=== PATIENT | male | born 1950 | race African-American/Black ===

== ENCOUNTER 2019-09-03 07:12 | Day surgery (SDC) | payer MEDICARE, MEDICAID ==
[~2019-09-03 07:12] MED LIST: KETOROLAC TROMETHAMINE 0.45% 4 DROP/0.4 ML DROPERETTE OD PRN
[2019-09-03] MEDS ORDERED: EPINEPHRINE INJ/PF 1 MG/1 ML AMPULE ONE (07:17)
[2019-09-03] MEDS ORDERED: LIDOCAINE 1%/PHENYLEPHRINE 1.5% 1 ML VIAL ONE (07:18)
[2019-09-03] MEDS ORDERED: CHONDR SU A NA/HYALUR INTRAOC KIT (SURGICARE) ONE (07:18)
[2019-09-03] MEDS: CYCLOPENTOLATE 0.2%/PHENYLEPHRINE 1% OPH SOLN 2 ML OD PRN ×3 (07:54→08:14)
[2019-09-03] MEDS: TETRACAINE HCL 0.5% OPH SOLN 4 ML OD PRN ×3 (07:54→08:16)
[2019-09-03] MEDS: TROPICAMIDE 1% OPH SOLN 15 ML OD PRN ×3 (07:54→08:14)
[2019-09-03] MEDS: BESIFLOXACIN HCL 0.6% OPH SUSP 5 ML BOTTLE OD PRN ×4 (07:54→08:45)
[2019-09-03] MEDS ORDERED: MIDAZOLAM 2 MG/2 ML INJ ONE (07:57)
[2019-09-03] MEDS ORDERED: FENTANYL CITRATE INJ/PF 100 MCG/2 ML AMPUL ONE (07:58)
[2019-09-03] MEDS: DORZOLAMIDE HCL 2%/TIMOLOL MALEAT 0.5% OPH SOLN 10 ML OD PRN ×2 (08:45)
[2019-09-03] MEDS ORDERED: CHONDR SU A NA/HYALUR SOD 0.5 ML DISP.SYRIN ONE (08:55)
== END 2019-09-03 09:22 | disposition home or self-care (01) ==
LOC: SC 07:12
PROVIDERS: ATTEND Ophthalmology
DX: H25.11 Age-related nuclear cataract, right eye (principal); H40.1113 Primary open-angle glaucoma, right eye, severe stage; Z79.899 Other long term (current) drug therapy; Z79.84 Long term (current) use of oral hypoglycemic drugs; K21.9 Gastro-esophageal reflux disease without esophagitis; E78.00 Pure hypercholesterolemia, unspecified; I10 Essential (primary) hypertension; E11.9 Type 2 diabetes mellitus without complications; J45.909 Unspecified asthma, uncomplicated; M06.9 Rheumatoid arthritis, unspecified
CPT/HCPCS: 0191T; 66984; 140; 82962; C1783; J0171; J2250; J2370; J3010; J3490; V2632